=== PATIENT | male | born 1985 | race Caucasian/White ===

== ENCOUNTER 2017-06-08 15:04 | Emergency (ER) | payer MEDICAID ==
[~2017-06-08] VITALS: Ht 177.8 cm; Wt 99.8 kg
[2017-06-08 17:11] VITALS: BP 136/98
== END 2017-06-08 17:11 | disposition home or self-care (01) ==
LOC: ED 15:04
DX: S62.306A Unspecified fracture of fifth metacarpal bone, right hand, initial encounter for closed fracture (principal); Y04.2XXA Assault by strike against or bumped into by another person, initial encounter; Y93.89 Activity, other specified; Y92.89 Other specified places as the place of occurrence of the external cause; Y99.8 Other external cause status
CPT/HCPCS: A4570

== ENCOUNTER 2019-04-12 07:55 | Emergency (ER) | payer MEDICAID ==
[~2019-04-12] VITALS: Ht 182.9 cm; Wt 97.1 kg
[2019-04-12 08:02] VITALS: Ht 182.9 cm; Wt 97.1 kg
[2019-04-12 09:05] VITALS: BP 128/78
== END 2019-04-12 09:05 | disposition home or self-care (01) ==
LOC: ED 07:55
DX: S61.303A Unspecified open wound of left middle finger with damage to nail, initial encounter (principal); W23.0XXA Caught, crushed, jammed, or pinched between moving objects, initial encounter; Y93.89 Activity, other specified; Y92.89 Other specified places as the place of occurrence of the external cause; Y99.8 Other external cause status